=== PATIENT | female | born 1965 | race Caucasian/White ===

== ENCOUNTER → 2017-07-16 11:00 | Outpatient (CLI) | payer SELFPAY ==
[2017-07-19 13:04] LABS: HPV Reflexed? NOT INDICATED
== END ==
PROVIDERS: Visit Provider Obstetrics & Gynecology
DX: Z12.4 Encounter for screening for malignant neoplasm of cervix (principal)
CPT/HCPCS: 88175; G0145

== ENCOUNTER → 2019-09-29 | Outpatient (CLI) | payer SELFPAY ==
[2019-10-04 01:19] LABS: HPV Reflexed? NOT INDICATED
== END | disposition home or self-care (01) ==
LOC: LABSPEC 09-30 09:14
PROVIDERS: Visit Provider Obstetrics & Gynecology
DX: Z12.4 Encounter for screening for malignant neoplasm of cervix (principal)
CPT/HCPCS: 88175; G0145